=== PATIENT | female | born 1945 | race Caucasian/White ===

== ENCOUNTER 2018-01-11 06:04 | Emergency (ER) | payer OTHER ==
[~2018-01-11] VITALS: Ht 157.5 cm; Wt 90.7 kg
[2018-01-11 06:52] LABS: HEMATOCRIT 35.8 % (36.0-46.0); HEMOGLOBIN 11.9 G/DL (11.9-15.5); MCH 31.6 PG (29.0-34.0); MCHC 33.2 G/DL (30.0-36.0); MCV 95.2 FL (83-99); PLATELET COUNT 196 K/uL (156-360); RBC DIS.WIDTH-CV 13.3 % (11.8-14.6); RBC DIS.WIDTH-SD 47.3 % (39-53); RED BLOOD COUNT 3.76 M/uL (3.80-5.20); WHITE BLOOD COUNT 6.5 K/uL (4.1-10.2)
[2018-01-11 07:24] LABS: TROP-I INTERPRETATION NEGATIVE; TROPONIN-I 0.02 ng/mL (0.0-0.30)
[2018-01-11 07:33] LABS: CHLORIDE 101 MEQ/L (99-109); CREATININE 0.7 MG/DL (0.6-1.3); GFR ESTIMATE (CALCULATED) > 59 mL/min/; GLUCOSE 144 mg/dL (70-99); POTASSIUM 4.1 MEQ/L (3.7-5.4); SODIUM 135 MEQ/L (136-147); UREA NITROGEN (BUN) 9 mg/dL (9-23)
[2018-01-11 07:54] LABS: BILIRUBIN NEGATIVE; BLOOD NEGATIVE; COLOR YELLOW ((YELLOW)); GLUCOSE (STRIP) NEGATIVE; KETONES NEGATIVE; LEUKOCYTES MODERATE; NITRITE POSITIVE; PROTEIN (STRIP) NEGATIVE; SPECIFIC GRAVITY 1.006 (1.000-1.030); UROBILINOGEN 0.2 MG/DL (0.2-1.0)
[2018-01-11 08:08] LABS: APPEARANCE SL.HAZY ((CLEAR))
[2018-01-11 08:12] LABS: BACTERIA RARE /HPF; EPITHELIAL CELLS RARE /HPF; MUCUS TRACE /LPF; RED BLOOD CELLS 0-5 /HPF (0-5); UCUL ADDED? YES
[2018-01-11] MEDS ORDERED: MACROBID100 MG PO (08:26)
[2018-01-11 08:48] VITALS: BP 122/57
== END 2018-01-11 08:49 | disposition home or self-care (01) ==
LOC: EME 06:04
PROVIDERS: Emergency Medicine
DX: N39.0 Urinary tract infection, site not specified (principal); E86.0 Dehydration; L55.0 Sunburn of first degree; R51 Headache; R91.1 Solitary pulmonary nodule; I10 Essential (primary) hypertension; K21.9 Gastro-esophageal reflux disease without esophagitis; E78.5 Hyperlipidemia, unspecified; F41.9 Anxiety disorder, unspecified; Z87.440 Personal history of urinary (tract) infections; Z87.891 Personal history of nicotine dependence; Z98.84 Bariatric surgery status; Z88.2 Allergy status to sulfonamides
CPT/HCPCS: 71046; 80048; 81003; 84484; 85027; 87077; 87086; 87186; 93005; 99281; 99285; J1200; J2765; J7040

== ENCOUNTER 2018-01-22 11:06 | Day surgery (SDC) | payer OTHER ==
[~2018-01-22] VITALS: Ht 154.9 cm; Wt 88.5 kg
[~2018-01-22 11:06] MED LIST: AMLODIPINE BESYL5 MG PO; ASPIR-LOW81 MG PO; ATORVASTATIN CA40 MG PO; BENADRYL50 MG PO; DULOXETINE HCL60 MG PO; LORAZEPAM1 MG PO; MACROBID100 MG PO; METOPROLOL TART25 MG PO; TYLENOL EXTRA500 MG PO
== END 2018-01-22 20:47 | disposition home or self-care (01) ==
LOC: CATH 11:06
PROC: B2111ZZ Fluoroscopy of Multiple Coronary Arteries using Low Osmolar Contrast (ICD-10-PCS; principal; 2018-01-22)
PROC: 4A033BC Measurement of Arterial Pressure, Coronary, Percutaneous Approach (ICD-10-PCS; principal; 2018-01-22)
PROC: 4A023N7 Measurement of Cardiac Sampling and Pressure, Left Heart, Percutaneous Approach (ICD-10-PCS; principal; 2018-01-22)
DX: I25.10 Atherosclerotic heart disease of native coronary artery without angina pectoris (principal); I25.82 Chronic total occlusion of coronary artery; E11.9 Type 2 diabetes mellitus without complications; I10 Essential (primary) hypertension; E78.5 Hyperlipidemia, unspecified; E53.8 Deficiency of other specified B group vitamins; Z79.82 Long term (current) use of aspirin; Z88.2 Allergy status to sulfonamides
CPT/HCPCS: 85347; C1725; C1769; C1887; J1200; J1644; J2250; J3010